=== PATIENT | male | born 1960 | race Caucasian/White ===

== ENCOUNTER 2025-08-23 07:33 | Outpatient (CLI) | payer MEDICARE, OTHER, SELFPAY ==
--- OUTSIDE RECORDS SUMMARY | 2020-02-17 10:01 | XMS_ITS | Continuity of Care Document ---
Author Organization [facility] Address [address] [place] [address] Phone Care Team Providers Care Equipment Operator/Laborer/Supervisor Name Role Phone Unavailable Unavailable Unavailable Allergies, Adverse Reactions, Alerts Substance Reaction Status Criticality No Known Allergies Active No Inform ation Medications Medication Instructions Dosage Effective Dates (start - stop) Status Comments losartan 50 mg tablet take 1 tablet by oral route every day 50 MG - Active amlodipine 10 mg tablet take 1 tablet by oral route every day 10 MG - Active Keflex 500 mg capsule take 2 capsule by oral route every 12 hours 1000 MG - Active Combivent Respimat 20 mcg-100 mcg/actuation solution for inhalation inhale 1 puff by inhalation route 4 times every day ; may take additional puffs as needed not to exceed 6 puffs in 24hrs 1.00 puff - Active hydrochlorothiazide 25 mg tablet take 1 tablet by oral route every day 25 MG - Active thiamine HCl (vitamin B1) 100 mg tablet take 100 Milligram by Oral route every morning 100 Milligram - Active Hydrogel - Active Ensure oral liquid po bid every day - Active for loss of weight Procedures Procedure Date BEHAVIORAL HEALTH OUTREACH SERVICE (PLAN ABIGAIL APPROACH TO REACH A TARGETED BEHAVIORAL HEALTH OUTREACH SERVICE (PLAN ABIGAIL APPROACH TO REACH A TARGETED OFFICE/OUTPATIENT VISIT, EST Case management, per month Case management, per month Case management, per month Case management, per month Case management, per month Case management, per month Case management, per month Case management, per month Case management, per month Case management, per month Case management, per month Case management, per month Case management, per month Case management, per month Case management, per month Case management, per month Case management, per month Case management, per month Case management, per month Case management, per month Case management, per month Case management, per month Case management, per month Case management, per month Ndmoads-Fohrqvbt-Ulamilr Impressions May Case management, per month OFFICE/OUTPATIENT VISIT, EST OFFICE OUTPT EST 25 MIN Alcohol and/or drug screening 7 Case management, per month Extraction erupted tooth or exposed root Extraction erupted tooth or exposed root Extraction erupted tooth or exposed root Extraction erupted tooth or exposed root Extraction erupted tooth or exposed root Extraction erupted tooth or exposed root Extraction erupted tooth or exposed root Extraction erupted tooth or exposed root Extraction erupted tooth or exposed root Extraction erupted tooth or exposed root Extraction erupted tooth or exposed root Extraction erupted tooth or exposed root Alveoloplasty W/Extn. Case management, per month Case management, per month Case management, per month Case management, per month Extraction erupted tooth or exposed root Extraction erupted tooth or exposed root Extraction erupted tooth or exposed root Extraction erupted tooth or exposed root Extraction erupted tooth or exposed root Extraction erupted tooth or exposed root Extraction erupted tooth or exposed root Extraction erupted tooth or exposed root Extraction erupted tooth or exposed root Alveoloplasty W/Extn. Case management, per month Case management, per month Comprehensive Oral Evaluation 6 Full Mounth Series Of Radiographic Image s Dental Panoramic Radiographic Image Study Models OFFICE/OUTPATIENT VISIT, EST Case management, per month Case management, per month OFFICE OUTPT EST 25 MIN COLLECTION OF VENOUS BLOOD BY VENIPUNCTU RE BLOOD COUNT; COMPLETE (CBC), AUTOMATED D IFF COMPRE METAB PANEL LIPID PANEL PROSTATE SPECIFIC ANTIGEN (PSA); TOTAL J OFFICE/OUTPATIENT VISIT, EST Alcohol and/or drug screening 5 Immun admin-adult or WO counseling - fir st vaccine/toxoid Influenza Virus Vaccine, David drivalent, Preservative Free, 3 and Older, Intraderm PERIODIC COMPREHENSIVE PREVENTIVE MED RE E/M; ESTABLISHED PATIENT; 40-64 OFFICE/OUTPATIENT VISIT, EST Periapical Radiographic, first Image Nov Limit oral eval problem focused 015 Extraction erupted tooth or exposed root OFFICE OUTPT EST 25 MIN Immun admin-adult or WO counseling - fir st vaccine/toxoid INFLUENZA VACCINE, NO PRESERVATIVE, AGE 3YRS+ OFFICE/OUTPATIENT VISIT, EST OFFICE OUTPT EST 25 MIN COLLECTION OF VENOUS BLOOD BY VENIPUNCTU RE OFFICE/OUTPATIENT VISIT, EST INFLUENZA VACCINE, AGE 3YRS+ OFFICE/OUTPATIENT VISIT, EST OFFICE OUTPT EST 25 MIN COLLECTION OF VENOUS BLOOD BY VENIPUNCTU RE OFFICE OUTPT EST 25 MIN OFFICE/OUTPATIENT VISIT, EST OFFICE/OUTPATIENT VISIT, EST URNLS DIP STICK/TABLET RGNT AUTO W/O GALE COMPRE METAB PANEL LIPID PANEL BLOOD COUNT; COMPLETE (CBC), AUTOMATED (HGB, HCT, RBC, WBC AND PLATELET COUNT) THYROID STIMULATING HORMONE (TSH) PROSTATE SPECIFIC ANTIGEN (PSA); TOTAL M OFFICE/OUTPATIENT VISIT, EST Periapical first film Limit oral eval problem focused 008 Extraction erupted tooth or exposed root OFFICE CONSULT, 15 MIN, 3 KE Y COMPS: PROB FOCUS HX; PROB FOCUS EXAM; [facility] OFFICE CONSULT, 15 MIN, 3 KE Y COMPS: PROB FOCUS HX; PROB FOCUS EXAM; [facility] OFFICE CONSULT, 15 MIN, 3 KE Y COMPS: PROB FOCUS HX; PROB FOCUS EXAM; [facility] OFFICE CONSULT, 15 MIN, 3 KE Y COMPS: PROB FOCUS HX; PROB FOCUS EXAM; [facility] OFFICE/OUTPATIENT VISIT, EST OFFICE CONSULT, 15 MIN, 3 KE Y COMPS: PROB FOCUS HX; PROB FOCUS EXAM; [facility] OFFICE CONSULT, 15 MIN, 3 KE Y COMPS: PROB FOCUS HX; PROB FOCUS EXAM; [facility] OFFICE/OUTPATIENT VISIT, EST OFFICE CONSULT, 15 MIN, 3 KE Y COMPS: PROB FOCUS HX; PROB FOCUS EXAM; [facility] OFFICE CONSULT, 15 MIN, 3 KE Y COMPS: PROB FOCUS HX; PROB FOCUS EXAM; [facility] PROSTATE SPECIFIC ANTIGEN (PSA); TOTAL D LIPID PANEL COMPRE METAB PANEL OFFICE OUTPT NEW 20 MINUTES BLOOD PRESSURE > 140/90 MM HG 6 COLLECTION OF VENOUS BLOOD BY VENIPUNCTU RE OFFICE CONSULT, 15 MIN, 3 KE Y COMPS: PROB FOCUS HX; PROB FOCUS EXAM; STRTFWD Limit oral eval problem focused 006 Sedative Filling Advance Directives Directive Yes / No Effective Date File Name No Information Encounters Encounter Description Practice Location Reason(s) For Visit Diagnoses Date Provider Providers Copied on Encounter [facility], [address], [place], [place], [address] , tel: [phone] [facility] No Information 0 No Information [facility], [address], [place], [place], [address] , tel: [phone] [facility] No Information 0 No Information OFFICE/OUTPATI ENT VISIT, EST [facility], [address], [place], [place], [address] , tel: [phone] [facility] talking (chief complaint)fal l cannot walk . (chief complaint)Con gestive heart failure (chief complaint) Chronic viral hepatitis CChronic systolic (congestive) heart failureOther specified counselingPat ient's other noncompliance with medication regimen 0 Lacie Downs. [address], [place], [place], [address], . tel:[phone] [facility], [address], [place], [place], [address] , tel: [phone] [facility] No Information 9 [facility] Case. [address], [place], [place], [address], . tel:[phone] [facility], [address], [place], [place], [address] , tel: [phone] [facility] No Information 9 Management Case. [address], [place], [place], [address], . tel:[phone] [facility], [address], [place], [place], [address] , tel: [phone] [facility] No Information Management Case. [address], [place], [place], [address], [place]. tel:[phone] [facility], [address], [place], [place], [address] , [place] tel:[phone] [facility] No Information Management Case. [address], [place], [place], [address], [place]. tel:[phone] [facility], [address], [place], [place], [address] , [place] tel:[phone] [facility] No Information Management Case. [address], [place], [place], [address], [place]. tel:[phone] [facility], [address], [place], [place], [address] , [place] tel:[phone] [facility] No Information Management Case. [address], [place], [place], [address], [place]. tel:[phone] [facility], [address], [place], [place], [address] , [place] tel:[phone] [facility] No Information Management Case. [address], [place], [place], [address], [place]. tel:[phone] [facility], [address], [place], [place], [address] , [place] tel:[phone] [facility] No Information Management Case. [address], [place], [place], [address], [place]. tel:[phone] [facility], [address], [place], [place], [address] , [place] tel:[phone] [facility] No Information Management Case. [address], [place], [place], [address], [place]. tel:[phone] [facility], [address], [place], [place], [address] , [place] tel:[phone] [facility] No Information 8 Management Case. [address], [place], [place], [address], [place]. tel:[phone] [facility], [address], [place], [place], [address] , [place] tel:[phone] [facility] No Information 8 Management Case. [address], [place], [place], [address], [place]. tel:[phone] [facility], [address], [place], [place], [address] , [place] tel:[phone] [facility] No Information 0 8 Management Case. [address], [place], [place], [address], [place]. tel:[phone] [facility], [address], [place], [place], [address] , [place] tel:[phone] [facility] No Information 0 3 8 Management Case. [address], [place], [place], [address], [place]. tel:[phone] [facility], [address], [place], [place], [address] , [place] tel:[phone] [facility] No Information 8 Management Case. [address], [place], [place], [address], [place]. tel:[phone] [facility], [address], [place], [place], [address] , [place] tel:[phone] [facility] No Information 8 Management Case. [address], [place], [place], [address], [place]. tel:[phone] [facility], [address], [place], [place], [address] , [place] tel:[phone] [facility] No Information 8 Management Case. [address], [place], [place], [address], [place]. tel:[phone] [facility], [address], [place], [place], [address] , [place] tel: [phone] [facility] No Information 8 Management Case. [address], [place], [place], [address], [place]. tel:[phone] [facility], [address], [place], [place], [address] , [place] tel:[phone] [facility] No Information 8 Management Case. [address], [place], [place], [address], [place]. tel:[phone] [facility], [address], [place], [place], [address] , [place] tel: [phone] [facility] No Information Management Case. [address], [place], [place], [address], [place]. tel:[phone] [facility], [address], [place], [place], [address] , [place] tel: [phone] [facility] No Information Management Case. [address], [place], [place], [address], [place]. tel:[phone] [facility], [address], [place], [place], [address] , [place] tel: [phone] [facility] No Information 7 Management Case. [address], [place], [place], [address], [place]. tel:[phone] [facility], [address], [place], [place], [address] , [place] tel:[phone] [facility] No Information 7 Management Case. [address], [place], [address], [place]. tel:[phone] [facility], [address], [place], [address] , [place] tel:[phone] [facility] No Information Management Case. [address], [place], [address] [place] [address], . tel:[phone] [facility], [address], [place], [place], [address] , tel:[phone] [facility] Complete loss of teeth, unspecified cause, class I No Information Referring Provider: Florentino Yap, [address], [place], [address] . tel:[phone] [facility], [address], [place], [place], [address] , tel:[phone] [facility] No Information Management Case. [address], [place], [address] [place] [address], . tel:[phone] OFFICE/OUTPATI ENT VISIT, EST [facility], [address], [place], [place], [address] , tel:[phone] [facility] wound check (chief complaint) Cutaneous abscess of left handEssential (primary) hypertension Opal Soriano. [address], [place], [place], [address], . tel:[phone] Referring Provider: Christie Joseph, [address], [place], [address] . tel:[phone] OFFICE OUTPT EST 25 MIN [facility], [address], [place], [place], [address] , tel:[phone] [facility] ER follow up (chief complaint)hyp ertension (chief complaint)abc ess (chief complaint) Essential (primary) hypertensionC utaneous abscess of left hand 7 Opal Soriano. [address], [place], [place], [address], . tel:[phone] Referring Provider: Christie Joseph, [address], [place], [address] . tel:[phone] [facility], [address], [place], [place], [address] , [place] tel:[phone] [facility] No Information Management Case. [address], [place], [place], [address], [place]. tel:[phone] [facility], [address], [place], [place], [address] , [place] tel:[phone] [facility] Dental caries, unspecifiedCo mplete loss of teeth, unspecified cause, class I No Information Referring Provider: Anirudh Dahl, [address], [place], [address] . tel:[phone] [facility], [address], [place], [place], [address] , tel:[phone] [facility] No Information Management Case. [address], [place], [place], [address], [place]. tel:[phone] [facility], [address], [place], [address] , [place] tel: [phone] [facility] No Information Management Case. [address], [place], [place], [address], [place]. tel:[phone] [facility], [address], [place], [place], [address] , [place] tel: [phone] [facility] No Information Management Case. [address], [place], [place], [address], [place]. tel:[phone] [facility], [address], [place], [place], [address] , [place] tel:[phone] [facility] No Information Management Case. [address], [place], [place], [address], [place]. tel:[phone] [facility], [address], [place], [place], [address] , [place] tel:[phone] [facility] Dental caries, unspecifiedCo mplete loss of teeth, unspecified cause, class I No Information Referring Provider: Florentino Yap, [address], [place], [address] . tel:[phone] [facility], [address], [place], [place], [address] , [place] tel: [phone] [facility] No Information Management Case. [address], [place], [place], [address], [place]. tel:[phone] [facility], [address], [place], [place], [address] , [place] tel: [phone] [facility] No Information Management Case. [address], [place], [place], [address], [place]. tel:[phone] [facility], [address], [place], [place], [address] , [place] tel: [phone] [facility] Encounter for dental exam and cleaning w abnormal findings No Information OFFICE/OUTPATI ENT VISIT, EST [facility], [address], [place], [place], [address] , [place] tel: [phone] [facility] HEPTATATIS C (chief complaint)try smoking stop (chief complaint)dri nking less alhol (chief complaint)flu shot refuesd (chief complaint) Chronic viral hepatitis CEssential (primary) hypertension Lacie Downs. [address], [place], [place], [address], [place]. tel:[phone] Referring Provider: Yareli Medellin, [address], [place], [address] . tel:[phone] [facility], [address], [place], [place], [address] , [place] tel:[phone] [facility] No Information 6 Management Case. [address], [place], [place], [address], [place]. tel:[phone] [facility], [address], [place], [place], [address] , tel:[phone] [facility] No Information 6 Management Case. [address], [place], [place], [address], . tel:[phone] OFFICE OUTPT EST 25 MIN [facility], [address], [place], [place], [address] , tel: [phone] [facility] hypertension (chief complaint) Chronic viral hepatitis CNicotine dependence, unspecified, uncomplicated HypertensionE ncounter for general adult medical examination with abnormal findings Lacie Downs. [address], [place], [place], [address], . tel:[phone] Referring Provider: Yareli Medellin, [address], [place], [address] . tel:[phone] OFFICE/OUTPATI ENT VISIT, EST [facility], [address], [place], [place], [address] , tel:[phone] [facility] dental pain abcess lower part (chief complaint)smo kes 1/2 pac day 17 years (chief complaint)flu shot (chief complaint)no alchol / no drugs (chief complaint)hyp ertension (chief complaint) Essential (primary) hypertensionN icotine dependenceEnc ounter for immunizationC hronic viral hepatitis CDrug abuse counseling of drug abuserEncount er for screening for other disorder Lacie Downs. [address], [place], [place], [address], . tel:[phone] Referring Provider: Yareli Medellin [address], [place], [address] . tel:[phone] PERIODIC COMPREHENSIVE PREVENTIVE MED REE/M; ESTABLISHED PATIENT; 40-64 [facility], [address], [place], [place], [address] , tel:[phone] [facility] smoker 1/ 2 pac last 40 years (chief complaint)alc hol acctainaly (chief complaint)Cathie rtness of breath (chief complaint)hea ptiti s C seen [facility] waiting to be free (chief complaint)col onscopy 2 months ago (chief complaint) Routine general medical examination at a health care facilityChron ic hepatitis C without mention of hepatic comaCounselin g NOS (Hlth, Education, Advice, Instr)Persona l history of tobacco useScreening for malignant neoplasms of the prostate Dec- 5 Lacie Downs. [address], [place], [place], [address], . tel:[phone] Referring Provider: Yareli Medellin, [address], [place], [address] . tel:[phone] [facility], [address], [place], [place], [address] , [place] tel:[phone] [facility] Dental examination No Information OFFICE OUTPT EST 25 MIN [facility], [address], [place], [place], [address] , tel: [phone] [facility] medical exam (chief complaint)hep atitis c seen by heptology (chief complaint)Hyp ertension (chief complaint)ins omnia /loosing weight (chief complaint)smo ker `/ 2 pac / day (chief complaint) Chronic hepatitis C without mention of hepatic comaPersonal history of tobacco useRoutine general medical examination at a health care facilityNeed for prophylactic vaccination and inoculation, influenzaAbno rmal loss of weight 4 Lacie Downs. [address], [place], [place], [address], [place]. tel:[phone] Referring Provider: Yareli Medellin, [address], [place], [address] . tel:[phone] OFFICE/OUTPATI ENT VISIT, EST [facility], [address], [place], [place], [address] , [place] tel: [phone] [facility] arthritis (chief complaint)smo kes 1 / pac / day (chief complaint)hep atitis c stable / stopped alchol (chief complaint) Hypertension, BenignTobacco abuse counselingTob acco use disorderCough Hepatitis C 3 Lacie Downs. [address], [place], [place], [address], [place]. tel:[phone] OFFICE OUTPT EST 25 MIN [facility], [address], [place], [place], [address] , [place] tel: [phone] [facility] BP check (chief complaint)alc hol abuse episoding vodaka (chief complaint)smo ramya 1/2 pac itz (chief complaint)hep atitis c not followed (chief complaint) Routine general medical examination at a health care facilityBenig n essential hypertensionN ondependent alcohol abuse, episodic drinking behaviorChron ic hepatitis C without mention of hepatic comaDepressiv e disorder, NECRoutine general medical examination at a health care facility 3 Lacie Downs. [address], [place], [place], [address], [place]. tel:[phone] OFFICE/OUTPATI ENT VISIT, EST [facility], [address], [place], [place], [address] , [place] tel: [phone] [facility] rash (chief complaint)smo kes half pac a day 40 years (chief complaint)alc hol abuse better now (chief complaint) Routine general medical examination at a health care facilityConta ct dermatitis and other eczema, unspecified causePersonal history of tobacco useChronic hepatitis C without mention of hepatic comaRoutine general medical examination at a health care facilityNeed for prophylactic vaccination and inoculation, influenza 2 Lacie Downs. [address], [place], [place], [address], [place]. tel:[phone] OFFICE/OUTPATI ENT VISIT, EST [facility], [address], [place], [place], [address] , [place] tel: [phone] [facility] heptitis c newly dx (chief complaint) Chronic hepatitis C without mention of hepatic comaCounselin g NOS (Hlth, Education, Advice, Instr)Insomni a, unspecified 2 Lacie Downs. [address], [place], [place], [address], [place]. tel:[phone] OFFICE OUTPT EST 25 MIN [facility], [address], [place], [place], [address] , [place] tel: [phone] [facility] smoker (chief complaint)cou gh (chief complaint)alc hol abuse one week half pint Vodka (chief complaint) Routine general medical examination at a health care facilityScree jannet for malignant neoplasms of the prostateAcute bronchitisPer eliot history of tobacco useNondepende nt alcohol abuse, episodic drinking behaviorRouti ne general medical examination at a health care facility 1 Lacie Downs. [address], [place], [place], [address], [place]. tel:[phone] OFFICE OUTPT EST 25 MIN [facility], [address], [place], [place], [address] , [place] tel: [phone] [facility] hypertension (chief complaint)alc ohol abuse (chief complaint) Benign essential hypertensionN ondependent alcohol abuse, unspecified drinking behavior 1 No Information OFFICE/OUTPATI ENT VISIT, EST [facility], [address], [place], [place], [address] , [place] tel: [phone] [facility] Benign essential hypertension 9 No Information OFFICE/OUTPATI ENT VISIT, EST [facility], [address], [place], [place], [address] , [place] tel: [phone] [facility] BENIGN HYPERTENSION 0 9 No Information [facility], [address], [place], [place], [address] , [place] tel: [phone] [facility] LABORATORY EXAMINATION 9 No Information OFFICE/OUTPATI ENT VISIT, EST [facility], [address], [place], [place], [address] , [place] tel: [phone] [facility] BENIGN HYPERTENSION 9 No Information [facility], [address], [place], [place], [address] , [place] tel: [phone] [facility] DENTAL EXAMINATION 8 No Information OFFICE CONSULT, 15 MIN, 3 PEREZ COMPS: PROB FOCUS HX; PROB FOCUS EXAM; STRTFWD [facility], [address], [place], [place], [address] , [place] tel: [phone] [facility] COUNSELING NOS 8 No Information OFFICE CONSULT, 15 MIN, 3 PEREZ COMPS: PROB FOCUS HX; PROB FOCUS EXAM; STRTFWD [facility], [address], [place], [place], [address] , [place] tel: [phone] [facility] COUNSELING NOS 7 No Information OFFICE/OUTPATI ENT VISIT, EST [facility], [address], [place], [place], [address] , [place] tel: [phone] [facility] HYPERTENSION NOSOSTEOARTHR OS NOS-UNSPEC 7 No Information OFFICE CONSULT, 15 MIN, 3 PEREZ COMPS: PROB FOCUS HX; PROB FOCUS EXAM; STRTFWD [facility], [address], [place], [place], [address] , [place] tel: [phone] [facility] COUNSELING NOS 7 No Information OFFICE CONSULT, 15 MIN, 3 PEREZ COMPS: PROB FOCUS HX; PROB FOCUS EXAM; STRTFWD [facility], [address], [place], [place], [address] , [place] tel: [phone] [facility] COUNSELING NOS 7 No Information OFFICE CONSULT, 15 MIN, 3 PEREZ COMPS: PROB FOCUS HX; PROB FOCUS EXAM; STRTFWD [facility], [address], [place], [place], [address] , [place] tel: [phone] [facility] COUNSELING NOS 7 No Information OFFICE CONSULT, 15 MIN, 3 PEREZ COMPS: PROB FOCUS HX; PROB FOCUS EXAM; STRTFWD [facility], [address], [place], [place], [address] , [place] tel: [phone] [facility] COUNSELING NOS 7 No Information OFFICE/OUTPATI ENT VISIT, EST [facility], [address], [place], [place], [address] , [place] tel:[phone] [facility] OSTEOARTHROS NOS-UNSPECBEN IGN HYPERTENSION 7 No Information OFFICE CONSULT, 15 MIN, 3 PEREZ COMPS: PROB FOCUS HX; PROB FOCUS EXAM; STRTFWD [facility], [address], [place], [place], [address] , [place] tel: [phone] [facility] ECONOMIC PROBLEM 7 No Information OFFICE CONSULT, 15 MIN, 3 PEREZ COMPS: PROB FOCUS HX; PROB FOCUS EXAM; STRTFWD [facility], [address], [place], [place], [id number] , [place] tel: [phone] [facility] COUNSELING NOS 6 No Information OFFICE OUTPT NEW 20 MINUTES [facility], [address], [place], [place], [id number] , [place] tel: [phone] [facility] BENIGN HYPERTENSIONJ OINT PAIN-L/LEG 6 No Information OFFICE CONSULT, 15 MIN, 3 PEREZ COMPS: PROB FOCUS HX; PROB FOCUS EXAM; STRTFWD [facility], [address], [place], [place], [id number] , [place] tel: [phone] [facility] COUNSELING NOS 6 No Information [facility], [address], [place], [place], [id number] , [place] tel: [phone] [facility] DENTAL EXAMINATION 6 No Information As per patient privacy policy some of the clinical information may not be visible. Family History Family Member Type Diagnosis Age At Onset Problem (finding) Family history of hyper tension Mother Problem (finding) premature coronary hear t disease Mother Problem (finding) alcoholism Immunizations Vaccine Date Status Comments Influenza, injectable, 3 yrs or older (Fluzone) administered Source: New Immuniza tion Record Influenza, seasonal, injectable, preservative free, 3 yrs or older administered Source: New Immuniza tion Record Flu (split) (3 yrs or older) administered Note: pt tolerated injection well. rml ; Source: New Immunization Record Payers Payer name Insurance type Covered democrat ID Danielle champion(s) Medicaid - [facility] [id number] Medicaid - [facility] [id number] Social History Type Description Quantity Date Captured Comments Alcohol Use Details Unknown Caffeine Use Details Unknown Tobacco Use Status Smoking Status No Information Sex Male Chief Complaint And Reason For Visit No Information Reason For Referral Reason For Referral No Information Plan Of Treatment Date Type Action Status Goal AST. Due on due Goal Influenza Vaccine. Due on due Goal Colonoscopy. Due on due Goal Influenza Vaccine. Due on due Goal Colonoscopy. Due on due Goal AST. Due on due Goal Colonoscopy. Due on due Goal AST. Due on due Goal Influenza Vaccine. Due on due Goal Colonoscopy. Due on due Goal AST. Due on due Goal Influenza Vaccine. Due on due Goal Colonoscopy. Due on due Goal Influenza Vaccine. Due on due Goal AST. Due on due Goal AST. Due on due Goal Influenza Vaccine. Due on due Goal Colonoscopy. Due on due Goal Colonoscopy. Due on due Goal AST. Due on due Goal Influenza Vaccine. Due on due Goal Colonoscopy. Due on due Goal Influenza Vaccine. Due on due Goal AST. Due on due Goal Influenza Vaccine. Due on due Goal AST. Due on due Goal Colonoscopy. Due on due Goal Influenza Vaccine. Due on due Goal AST. Due on due Goal Colonoscopy. Due on due Goal AST. Due on due Goal Colonoscopy. Due on due Goal Influenza Vaccine. Due on due Goal Colonoscopy. Due on due Goal Influenza Vaccine. Due on due Goal AST. Due on due Goal AST. Due on due Goal Colonoscopy. Due on due Goal Influenza Vaccine. Due on due Goal Influenza Vaccine. Due on due Goal Colonoscopy. Due on due Goal AST. Due on due Goal AST. Due on due Goal Colonoscopy. Due on due Goal Influenza Vaccine. Due on due Goal AST. Due on due Goal Colonoscopy. Due on due Goal Influenza Vaccine. Due on due Goal AST. Due on due Goal Influenza Vaccine. Due on due Goal ALT. Due on due Goal PSA. Due on due Goal Lipid Panel. Due on due Goal BMP fasting. Due on due Goal AST. Due on due Goal PSA. Due on due Goal Lipid Panel. Due on due Goal BMP fasting. Due on due Goal ALT. Due on due Goal Influenza Vaccine. Due on due Goal PSA. Due on due Goal Lipid Panel. Due on due Goal BMP fasting. Due on due Goal ALT. Due on due Goal AST. Due on due Goal Influenza Vaccine. Due on due Goal Lipid Panel. Due on due Goal PSA. Due on due Goal AST. Due on due Goal BMP fasting. Due on due Goal Influenza Vaccine. Due on due Goal ALT. Due on due Goal Influenza Vaccine. Due on due Goal PSA. Due on due Goal Lipid Panel. Due on due Goal BMP fasting. Due on due Goal ALT. Due on due Goal AST. Due on due Goal ALT. Due on due Goal AST. Due on due Goal Lipid Panel. Due on due Goal Influenza Vaccine. Due on due Goal BMP fasting. Due on due Goal PSA. Due on due Goal BMP fasting. Due on due Goal Influenza Vaccine. Due on due Goal AST. Due on due Goal PSA. Due on due Goal Lipid Panel. Due on due Goal ALT. Due on due Goal ALT. Due on due Goal AST. Due on due Goal Lipid Panel. Due on due Goal BMP fasting. Due on due Goal Influenza Vaccine. Due on due Goal PSA. Due on due Goal AST. Due on due Goal Influenza Vaccine. Due on due Goal PSA. Due on due Goal Lipid Panel. Due on due Goal BMP fasting. Due on due Goal ALT. Due on due Goal AST. Due on due Goal BMP fasting. Due on due Goal ALT. Due on due Goal Influenza Vaccine. Due on due Goal Lipid Panel. Due on due Goal PSA. Due on due Goal ALT. Due on due Goal BMP fasting. Due on due Goal PSA. Due on due Goal AST. Due on due Goal Influenza Vaccine. Due on due Goal Lipid Panel. Due on due Goal PSA. Due on due Goal BMP fasting. Due on due Goal ALT. Due on due Goal Lipid Panel. Due on due Goal Influenza Vaccine. Due on due Goal AST. Due on due Goal Influenza Vaccine. Due on due Goal BMP fasting. Due on due Goal AST. Due on due Goal ALT. Due on due Goal PSA. Due on due Goal Lipid Panel. Due on due Goal Lipid Panel. Due on due Goal AST. Due on due Goal Influenza Vaccine. Due on due Goal ALT. Due on due Goal PSA. Due on due Goal BMP fasting. Due on due Goal PSA. Due on due Goal ALT. Due on due Goal Lipid Panel. Due on due Goal AST. Due on due Goal Influenza Vaccine. Due on due Goal BMP fasting. Due on due Goal Lipid Panel. Due on due Goal AST. Due on due Goal ALT. Due on due Goal PSA. Due on due Goal Influenza Vaccine. Due on due Goal BMP fasting. Due on due Goal ALT. Due on due Goal PSA. Due on due Goal Lipid Panel. Due on due Goal BMP fasting. Due on due Goal Influenza Vaccine. Due on due Goal AST. Due on due Goal BMP fasting. Due on due Goal ALT. Due on due Goal Influenza Vaccine. Due on due Goal PSA. Due on due Goal AST. Due on due Goal Lipid Panel. Due on due Goal PSA. Due on due Goal Lipid Panel. Due on due Goal BMP fasting. Due on due Goal Influenza Vaccine. Due on due Goal AST. Due on due Goal ALT. Due on due Goal BMP fasting. Due on due Goal AST. Due on due Goal Lipid Panel. Due on due Goal PSA. Due on due Goal ALT. Due on due Goal Influenza Vaccine. Due on due Goal AST. Due on due Goal Influenza Vaccine. Due on due Goal Lipid Panel. Due on due Goal ALT. Due on due Goal BMP fasting. Due on due Goal PSA. Due on due Goal Tobacco cessation counseling completed Goal Influenza Vaccine. Due on due Goal AST. Due on due Goal ALT. Due on due Goal PSA. Due on due Goal BMP fasting. Due on due Goal Lipid Panel. Due on due Goal Lipid Panel. Due on due Goal AST. Due on due Goal Influenza Vaccine. Due on due Goal BMP fasting. Due on due Goal ALT. Due on due Goal PSA. Due on due Goal PSA. Due on due Goal ALT. Due on due Goal Lipid Panel. Due on due Goal AST. Due on due Goal Influenza Vaccine. Due on due Goal BMP fasting. Due on due Goal Tobacco cessation counseling completed Goal BMP fasting. Due on due Goal AST. Due on due Goal Influenza Vaccine. Due on due Goal ALT. Due on due Goal PSA. Due on due Goal Lipid Panel. Due on due Goal Tobacco cessation counseling completed Goal Lipid Panel. Due on due Goal ALT. Due on due Goal AST. Due on due Goal BMP fasting. Due on due Goal PSA. Due on due Goal Tobacco cessation counseling completed Goal PSA. Due on due Goal BMP fasting. Due on due Goal AST. Due on due Goal Lipid Panel. Due on due Goal ALT. Due on due Goal Tobacco cessation counseling completed Goal Tobacco cessation counseling completed Goal Tobacco cessation counseling completed Goal Tobacco cessation counseling completed Referral Referred To: [facility] Radiology [address] [place], [phone] Ordered: Referral: [facility] Radiology. Radiology. ordered Referral Referred To: [facility] Ordered: Referral: [facility]. Hepatology. Evaluate and treat. ordered Referral Referred To: [facility] Endoscopy [address] [place], [address] [phone] Ordered: Referral: [facility] Endoscopy. Colonoscopy. ordered Referral Referred To: [facility] Hepatology [phone] Ordered: Referral: [facility] Hepatology. Hepatology. Evaluate and treat. ordered Referral Referred To: [facility] [address] [place] [address], [address] [phone] Ordered: Referral: [facility]. Colonoscopy. ordered Future Order: Lab Order CBC (Inc ludes DIFF/PLT) (OC67), Ordered on: Ordered Future Order: Lab Order Comprehe nsive Metabolic Panel (OC71), Ordered on: Ordered Future Order: Lab Order Lipid Pa yolanda (OC73), Ordered on: Ordered Future Order: Lab Order PSA, Tot al (OC53), Ordered on: Ordered Future Order: Lab Order CBC (Inc ludes DIFF/PLT) (OC67), Ordered on: Ordered Future Order: Lab Order Comprehe nsive Metabolic Panel (OC71), Ordered on: Ordered Future Order: Lab Order Lipid Pa yolanda (OC73), Ordered on: Ordered Future Order: Lab Order CBC (INC LUDES DIFF/PLT) ([id number]), Appointment on: , Sent on: Sent Future Order: Lab Order COMPREHE NSIVE METABOLIC PANEL W/EGFR ([id number]), Appointment on: , Sent on: Sent Future Order: Lab Order LIPID PA YOLANDA ([id number]), Appointment on: , Sent on: Sent Future Order: Lab Order PSA, TOT AL ([id number]), Appointment on: , Sent on: Sent History Of Present Illness Encounter Date Complaint History Of Prese nt Illness fall cannot walk . Congestive heart failure Relevan t medical history includes hypertension. Associated symptoms include ankle edema Additional information: needs. talking wound check wound on right h and. was given keflex and care instructions last visit. no problems with keflex no pain, or oozing per pt hypertension The HTN started in 2008. It is currently getting worse. Risk factors include race, heavy ETOH consumption, male gender and smoking. Associated symptoms include irregular heartbeat/palpitations. Pertinent negatives include chest pain, claudication, confusion, diaphoresis, dyspnea, epistaxis, fatigue, headache, hematuria, nausea, tinnitus, transient weakness, tremor, visual disturbances and vomiting. Additional information: Patient states he has not been taking his BP medication, but has it at home ER follow up abcess The symptoms beg an week ago. The symptoms are reported as being moderate. The location is left hand. He states the symptoms are acute. Patient states he fell last week and now has an abscess on left hand. Not currently on antiobiotics. He has tried using hydroxen peroxide on wound. Dressed with gauze and clear dressing flu shot refuesd HEPTATATIS C He states the sy mptoms are chronic. [place] heptology unless he stop drinking alhoo no farther treatmnet try smoking stop drinking less alhol hypertension The HTN started in 2008. Risk factors include race, heavy ETOH consumption, male gender and smoking. Pertinent negatives include chest pain, headache, nausea and vomiting. smokes 1/2 pac day 17 years flu shot no alchol / no drugs hypertension The HTN started in 2008. Risk factors include race, heavy ETOH consumption, male gender and smoking. Pertinent negatives include chest pain, claudication, nausea, tinnitus, visual disturbances and vomiting. Additional information: took bp med in past now tooth dental pain abcess lower part Shortness of breath Episodes occ ur daily. The patient notes chest tightness. Associated symptoms include chest pressure/discomfort. Pertinent negatives include anxiety, dry cough, excessive sputum, fatigue, fever, productive cough, purulent sputum, unilateral leg edema and wheezing. Additional information: combivent help reqyesting refills. smoker 1/ 2 pac last 40 years alchol acctainaly richy Ahmadi seen [facility] waiting to be free colonscopy 2 months ago hepatitis c seen by heptology smoker `/ 2 pac / day insomnia /loosing weight Hypertension The HTN started in 2008. Risk factors include race, heavy ETOH consumption, male gender and smoking. Pertinent negatives include chest pain. Additional information: last weight folowed by GI and heptology medical exam Functional Status Date Functional Assessmen t No Information Instructions Date Instruction Additional Infor leann not taking medicatio ns donot know medications Related to Chronic systolic (congestive) heart failure Keflex 500 mg twice daily for 10 daysKeep clean and drycleanse with hydrogen peroxidetriple antibiotic ointmentfollow up in 1 week Related to Cutaneous abscess of left hand Take hydrocholothiaz sobeida 25 mg daily in the a.m Amlodipe 10 mg daily Related to Essential (primary) hypertension Please take new medi cation as prescribed . Exercise 4 to 5 times aweek at least half hour.CHECK BP every week and keep a log. GOAL <140/ <90.See doctor every 2 months until blood pressure is under control.BRING your medication to every visit. Related to Essential (primary) hypertension patient has been fol lowed with [facility]. Patient has been alcohol free for the past month Related to Chronic viral hepatitis C Smoker. Advice to st op smoking. If you continue smoking there are increased chances of getting cancer, shortness of breath and COPD .WE can help you with medication or nicotine patches if you like . Slowly cut back on smoking. Very IMPORTANT for health! 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 advice to s top smoking if you continue smoke incresed changes of cancer and SOB / COPD .WE can help you with medication or nicotine patches if you like . slowly cut back on smoking very IMP for health Related to Nicotine dependence Low salt diet/ hytz 25 mg Exercise 1/2 hour 4 to 5 times a weekTake medicines dailyCHECK BP every 10 days keep log .GOAL <140/ <90COME TO SEE DOCTOR EVERY 4 to 6 months if it is WELL CONTROLLEDPlease bring your medications with you to the next visit Related to Essential (primary) hypertension psa done a t u Related to Scre ening for malignant neoplasms of the prostate stop smoking Related to Perso nal history of tobacco use Stop alcohol ingestion Related t o Chronic hepatitis C without mention of hepatic coma Avoid non-steroidal anti-inflammatory drugs. Related to Chronic hepatitis C without mention of hepatic coma FLU with [facility] for clon oscopy at [facility]/ ensure BID rtc 3 months Related to Abnormal loss of weight flu with GI at [facility] get records R elated to Chronic hepatitis C without mention of hepatic coma flu shot today Related to Need for prophylactic vaccination and inoculation, influenza advise to quit Related to Perso nal history of tobacco use no blood test done Related to Angie white general medical examination at a health care facility Increase activity level Take medications as prescribed Home blood pressure check Increase activity level Home blood pressure check Take medications as prescribed Home blood pressure check Increase activity level Take medications as prescribed As per patient privacy policy some of the clinical information may not be visible. Assessments Type Assessment Date No Information Patient Care Teams Name Effective Dates (start - stop) Status Members No Information
--- NOTE | ~2025-08-23 | PE_ITS ---
EXAMINATION: PET_PETPSMAST_PT DATE: 08/23/2025 10:00 INDICATION: Prostate cancer TECHNIQUE: 5.014 mCi of Illucix Ga-68([id number]) was administered i.v. Low dose computed tomography (CT) images were acquired from the base of the brain to the base of the brain to the proximal thighs for attenuation correction and anatomic localization. Positron emission tomography (PET) images were acquired in the same distribution beginning 79 minutes after injection. Images including fused PET/CT images were reconstructed in axial, coronal, and sagittal planes. Automated exposure control technique was employed. The dose-length product was 1408.38mGy-cm. COMPARISON: None FINDINGS: Head/neck: Typical pattern of symmetric physiologic increased activity in the lacrimal, parotid and submandibular glands as well as along the mucosa of the nasal and oral cavities, pharynx and hypopharynx. No pathologically enlarged cervical lymphadenopathy or suspicious foci of increased uptake in the visualized head or neck. Chest: Lungs are clear with no pulmonary nodules, pneumonia, pulmonary edema or pleural effusion. Heart size is normal. Minimal atherosclerotic coronary artery calcific location. No pericardial effusion. Thoracic aorta is normal in caliber. No pathologically enlarged or PSMA avid thoracic lymphadenopathy. Abdomen/pelvis/proximal thighs: Physiologic renal accumulation and excretion of activity in the kidneys, bladder and along portions of ureters. Prostatomegaly measuring 4.9 x 4.1 cm. There is diffuse mild increased prostatic activity with more focal small regions of more intense uptake with maximal SUV of 7.0 at the right posterior aspect of the prostate and 5.9 anteriorly near the midline consistent with primary prostate cancer. Normal degree and slightly heterogenous pattern of increased uptake throughout the liver and spleen without radiologic correlate or dominant PSMA avid lesion. Multiple calcified gallstones layering dependently in the normal gallbladder. The pancreas and bilateral adrenal glands are normal. Moderate uptake scattered throughout the bowels with typical duodenal and proximal jejunal predominance and without radiologic correlate, also likely physiologic. Normal appendix. There is mild increased activity with maximal SUV of 4.0 associated with a approximately 1.1 cm diameter region of focal cortical thicken ing associated with a right external iliac chain lymph node which is suspicious for metastatic disease. Lymph node demonstrates a relatively thin cortex peripheral to a large central fatty hilum. There is additional mild increased FDG uptake associated with a 1.6 x 1.6 cm right inguinal lymph node with large central fatty hilum and with maximal SUV of 3.1 and a lymph node measuring 8 mm in maximal short axis diameter also with prominent fatty hilum posterior medial to right common femoral vein with maximal SUV of 2.7. No other abnormal foci of increased uptake or pathologically enlarged lymphadenopathy in the abdomen, pelvis or proximal thighs. Musculoskeletal: L4-L5 anterior spinal fusion with anterior plate and screw fixation. No suspicious lytic, blastic or abnormally PSMA avid bone lesions. Spinal stimulator leads extending to the posterior central canal the lower thoracic spine with distal tips at level of T7. IMPRESSION: 1. Prostatomegaly with 2 foci of moderate increased uptake consistent with provided history of prostate cancer. 2. Mild uptake associated with lymph nodes along the right external iliac and common femoral chains suspicious for metastatic disease. No other more remote metastatic disease. 3. Cholelithiasis. Reviewed, dictated and finalized at location A. STORAGE SUPERVISOR IMPRESSION: 1. Prostatomegaly with 2 foci of moderate increased uptake consistent with prov ided history of prostate cancer. 2. Mild uptake associated with lymph nodes along the right external iliac and c ommon femoral chains suspicious for metastatic disease. No other more remote me tastatic disease. 3. Cholelithiasis.
--- OUTSIDE RECORDS SUMMARY | 2025-08-23 07:36 | XMS_ITS | Clinical Summary ---
Author Organization [facility] Address [address] [place] [address] Care Team Providers Care Eligibility Manager Name Role Phone Unavailable Primary Care Provider Unavailabl e Source Comments [facility],non-owned Affiliates and Associated Physician Practices is amultiple site organization consisting of ambulatory clinics and hospital sitesin [place], [place], [place] and [place]. This disclosure is being madepursuant to the Care Everywhere program and may not contain all information available regarding this patient. Last updated 18.[facility] Social History Tobacco Use Types Packs/Day Years Used Date Smoking Tobacco: Never Assessed Sex and Gender Information Value Date Recorded Sex Assigned at Not on file Legal Sex Male 2:07 PM CDT Gender Identity Not on file Sexual Orientation Not on file Plan of Treatment Health Maintenance Due Date Last Done Comments COLOGUARD (AGES 45-75) - COL ON CA SCREENING 1960 COLON MONITORING 1960 COLONOSCOPY - COLON CA SCREENING 1960 CT COLONOGRAPHY - COLON CA SCREENING 1960 Colorectal Cancer Screening 1960 FIT - COLON CA SCREENING 1960 FLEX SIG - COLON CA SCREENING 1960 LIPID TESTING 1960 HIV SCREENING 1975 HEPATITIS C SCREENING 04/20/1978 DTAP/TDAP/TD VACCINES (1 - Tdap) 1979 PNEUMOCOCCAL VACCINE 50+ (1 of 1 - PCV) 2010 ZOSTER VACCINE (1 of 2) 2010 DEPRESSION SCREENING 10/13/2024 COVID-19 VACCINE (1 - 2023-2 5 season) 2025 INFLUENZA VACCINE (#1) 2025 Respiratory Syncytial Virus (RSV) Vaccine Pt: or over 60 yrs (1 - 1-dose 75+ series) 2035 HEPATITIS B VACCINE Aged Out No longe r eligible based on patient's age to complete this topic HIB VACCINE Aged Out No longer eligi ble based on patient's age to complete this topic HPV VACCINE Aged Out No longer eligi ble based on patient's age to complete this topic MENINGOCOCCAL (Group B) VACC INE SHARED DECISION-MAKING Aged Out No longer eligibl e based on patient's age to complete this topic MENINGOCOCCAL GROUPS A/C/Y/W VACCINE Aged Out No longer eligible b ased on patient's age to complete this topic Insurance MEDICARE [facility] Address: [address] [place] [address]
--- OUTSIDE RECORDS SUMMARY | 2025-08-23 07:36 | XMS_ITS | Patient Health Record ---
Author Organization [facility] Address [address] [place], [place] [id number] Care Team Providers [employer] Lawyer Name Role Phone SamWINSOME villa Unavailable [phone] Reason For Referral No Information Plan Of Treatment No Information Insurance Providers Payer Name Payer Address Payer Phone Subscriber Number Group Number Insured Name Patient Relationship to Insured Coverage Start Date Coverage End Date Medicare Part B [place] [address] [place] [phone] [id number] DEMETRI LEPE Self - patient is the insured [facility] [address] [place] [address] [id number] MINA LEPE Spouse - patient is the spouse of the insured
== END 2025-08-23 07:34 | disposition home or self-care (01) ==
PROVIDERS: Visit Provider Urology
DX: C61 Malignant neoplasm of prostate (principal); K80.20 Calculus of gallbladder without cholecystitis without obstruction
CPT/HCPCS: 78815; A9596